=== PATIENT | male | born 1950 | race Caucasian/White ===

== ENCOUNTER 2022-01-30 08:19 | Outpatient (CLI) | payer OTHER, SELFPAY ==
--- NOTE | ~2022-01-30 | CT_ITS ---
EXAMINATION: CT abdomen pelvis wo con DATE: 01/30/2022 08:54 INDICATION: Bilateral flank pain TECHNIQUE: Computed tomography (CT) of the abdomen and pelvis was performed without intravenous contr ast. The dose-length product (DLP) was 1093.73 mGy-cm. Automated exposure control and iterative recon struction technique were employed. COMPARISON: None FINDINGS: The lung bases are clear. The heart size is normal. There are trace pleural effusions. The liver, spleen, pancreas, gallbladder, and left adrenal gland are normal. There is a 12 mm adenoma of the right adrenal gland. There are three nonobstructing stones of the right kidney which measure up t o 3 mm. There are two nonobstructing stones of the left kidney which measure up to 9 mm. There is a 1 .7 cm cyst of the left kidney. No stones are present in the ureters or bladder. There is no hydroneph rosis or hydroureter. No pathologically enlarged abdominal or pelvic lymph nodes are identified. Ther e is calcified atherosclerosis of the aorta and many of the other arteries. There is no free intraper itoneal gas or evidence of bowel obstruction. The appendix is normal. There is a left inguinal hernia containing fat. There is moderate wall thickening of the urinary bladder. Moderate lumbar spondylosi s is noted. IMPRESSION: 1. Nonobstructing bilateral nephrolithiasis. 2. Wall thickening of the urinary bladder which could reflect cystitis or chronic outlet obstruction. Reviewed, dictated and finalized at location B. IMPRESSION: 1. Nonobstructing bilateral nephrolithiasis. 2. Wall thickening of the urinary bladder which could reflect cystitis or chron ic outlet obstruction.
== END 2022-01-30 08:20 | disposition home or self-care (01) ==
LOC: CHSIMG 08:27
PROVIDERS: PCP Internal Medicine; Visit Provider Nurse Practitioner
DX: N20.0 Calculus of kidney (principal)
CPT/HCPCS: 74176